=== PATIENT | female | born 1950 | race Caucasian/White ===

== ENCOUNTER 2016-11-06 12:36 | Observation (INO) | payer MEDICARE, MEDICAID ==
--- NOTE | 2016-11-06 13:32 | PDOC CONSULTATION ---
Consultation Consult Date: 11/06/16 Attending physician:: KEVIN GUZMAN Consult reason:: Epigastric, LUQ pain, possible GI bleed History of Present Illness Admission Date/PCP: 11/06/16 12:36 АННА SOFIA, History of Present Illness: HOLLEY BURROUGHS is a 65 year old female she has been admitted by Dr Stevens. patient states was working in her yard felt something "pop" in the LUQ patient states has been having pain since then states that she saw dark blood in her stools she denies any melena there is no early satiety patient denies any nausea or vomiting patient says no fever or chills says that she has had a colonoscopy done in the past does use tobacco denies any dysphagia or odynophagia Past Medical History Cardiac Medical History: Reports: Hyperlipidema Pulmonary Medical History: Reports: Chronic Obstructive Pulmonary Disease (COPD) Endocrine Medical History: Reports: Diabetes Mellitus Type 2, Hypothyroidism GI Medical History: Reports: Gastroesophageal Reflux Disease Musculoskeltal Medical History: Reports: Arthritis Past Surgical History Past Surgical History: Reports: None Social History Smoking Status: Current Every Day Smoker Frequency of Alcohol Use: Occasional Drugs: None Family History Parental Family History Reviewed: Yes Children Family History Reviewed: Unknown Sibling(s) Family History Reviewed.: Unknown Medication/Allergy Home Medications: Albuterol Sulfate [Proair HFA] 1 puff IH Q4PM 11/06/16 Calcium Carbonate/Vitamin D3 [Calcium 600-Vit D3 200 Tablet] 1 tab PO DAILY Cyclobenzaprine HCl [Flexeril 10 mg Tablet] 10 mg PO Q8HP PRN 11/06/16 Fluticasone Propionate [Flonase Nasal [place] 50 Mcg/[place] 16 gm] 1 spray NASL DAILY 11/06/16 Levothyroxine Sodium 100 mcg PO QAM 11/06/16 Metformin HCl 500 mg PO QPM 11/06/16 Simvastatin 20 mg PO QPM 11/06/16 Allergies/Adverse Reactions: aspirin Allergy (Unverified 11/06/16 13:17) Review of Systems Constitutional: ABSENT: fever(s), headache(s), night sweats Eyes: ABSENT: visual disturbances Ears: ABSENT: hearing changes Respiratory: ABSENT: dyspnea, hemoptysis Gastrointestinal: ABSENT: diarrhea, dysphagia, hematochezia, melena, nausea, vomiting Genitourinary: ABSENT: dysuria, hematuria Musculoskeletal: ABSENT: joint swelling Integumentary: ABSENT: lesions, pruritus Psychiatric: ABSENT: hallucinations Endocrine: ABSENT: polydipsia, polyphagia, polyuria Physical Exam Vital Signs: Intake & Output 11/05/16 11/06/16 11/07/16 06:59 06:59 06:59 Weight 56.416 kg General appearance: PRESENT: no acute distress, thin Head exam: PRESENT: atraumatic, normocephalic Eye exam: PRESENT: EOMI, PERRLA. ABSENT: nystagmus, periorbital swelling, scleral icterus Throat exam: ABSENT: tonsillar exudate Neck exam: ABSENT: meningismus, tenderness, thyromegaly Cardiovascular exam: PRESENT: RRR, +S1, +S2 GI/Abdominal exam: PRESENT: normal bowel sounds, soft. ABSENT: distended, guarding, Mcdonough's sign, rebound, rigid, tenderness Extremities exam: ABSENT: joint swelling Musculoskeletal exam: PRESENT: full ROM Neurological exam: PRESENT: alert, awake, oriented to person, oriented to time, oriented to situation, reflexes normal, CN II-XII grossly intact Psychiatric exam: PRESENT: appropriate affect Skin exam: PRESENT: normal color. ABSENT: mottled, pallor, petechiae, urticaria , vesicles Assessment & Plan - Diagnosis (1) Epigastric pain Plan: possible peptic ulcer disease Will need EGD Risks, benefits and alternatives of the procedure are explained to the patient in detail Further recommendations to follow her Hgb is stable previous colonoscopy done per patient will try to get records to determine findings and if needed to be repeated - Time Time Spent: 50 to 70 Minutes
[2016-11-06 14:28] LABS: MEAN CORPUSCULAR HEMOGLOBIN 29.9 pg (27.0-33.4); MEAN CORPUSCULAR HGB CONC 31.9 g/dL (32.0-36.0); MEAN CORPUSCULAR VOLUME 94 fl (80-97); RED BLOOD COUNT 5.03 10^6/uL (3.72-5.28); RED CELL DISTRIBUTION WIDTH 13.2 % (11.5-14.0); WHITE BLOOD COUNT 6.7 10^3/uL (4.0-10.5)
[2016-11-06 14:51] LABS: ALANINE AMINOTRANSFERASE 42 U/L (9-52); ALBUMIN 4.2 g/dL (3.5-5.0); ALKALINE PHOSPHATASE 133 U/L (38-126); ANION GAP 11 (5-19); ASPARTATE AMINO TRANSFERASE 25 U/L (14-36); BILIRUBIN,TOTAL 0.5 mg/dL (0.2-1.3); BLOOD UREA NITROGEN 12 mg/dL (7-20); CALCIUM 8.6 mg/dL (8.4-10.2); CARBON DIOXIDE 30 mmol/L (22-30); CHLORIDE 103 mmol/L (98-107); CREATININE RESULT 0.75 mg/dL (0.52-1.25); GLUCOSE 81 mg/dL (75-110); POTASSIUM 4.4 mmol/L (3.6-5.0); SODIUM 144.4 mmol/L (137-145); TOTAL PROTEIN 6.5 g/dL (6.3-8.2)
--- NOTE | 2016-11-06 19:21 | EKG REPORT ---
SEVERITY:- OTHERWISE NORMAL ECG - SINUS RHYTHM LEFT AXIS DEVIATION : Confirmed by: Irasema Kumar MD 06-Nov-2016 19:20:28
[2016-11-06] MEDS ORDERED: ALBUTEROL SULFATE HFA (90 MCG/PUFF) 8 GM MDI (1 MDI/ER DISP) IH SCH (20:15)
[2016-11-06] MEDS ORDERED: (PENDING PHARMACY ID) (Calcium Carbonate/Vitamin D3 [Calcium 600-Vit D3 200 Tablet] 1 TAB) PO SCH (20:15)
[2016-11-06] MEDS ORDERED: FLUTICASONE NASAL SPRAY 50 MCG/SPRY 120 SPRAY/16 GM NASL ONE (21:00)
[2016-11-07] MEDS: NORMAL SALINE 1000 ML 1,000 ML IV PRN ×2 (03:42→15:53)
[2016-11-07] MEDS ORDERED: LEVOTHYROXINE SODIUM 0.1 MG TABLET PO SCH (08:00)
[2016-11-07] MEDS ORDERED: DIPHENHYDRAMINE HCL 50 MG/ML VIAL ONE (09:26)
[2016-11-07] MEDS ORDERED: PROMETHAZINE HCL INJ 25 MG/1 ML VIAL ONE (09:26)
[2016-11-07] MEDS ORDERED: ONDANSETRON HCL INJ/PF 4 MG/2 ML SDV ONE (09:26)
[2016-11-07] MEDS ORDERED: MIDAZOLAM 2 MG/2 ML INJ ONE (09:26)
[2016-11-07] MEDS ORDERED: NALOXONE HCL INJ/PF 0.4 MG/1 ML SDV ONE (09:26)
[2016-11-07] MEDS ORDERED: FENTANYL CITRATE INJ/PF 100 MCG/2 ML AMPUL ONE (09:27)
[2016-11-07] MEDS ORDERED: GLUCAGON,HUMAN RECOMB 1 MG INJ ONE (09:27)
[2016-11-07] MEDS ORDERED: EPINEPHRINE INJ 1 MG/10 ML DISP.SYRIN ONE (09:27)
[2016-11-07] MEDS ORDERED: FLUMAZENIL INJ 0.5 MG/5 ML VIAL IV ONE (09:27)
[2016-11-07] MEDS: MIDAZOLAM 2 MG/2 ML INJ ONE ×2 (09:56→10:00)
[2016-11-07] MEDS ORDERED: CALCIUM CARBONATE 250 MG/VITAMIN D3 125 UNIT TABLET PO SCH (10:00)
[2016-11-07] MEDS ORDERED: FLUTICASONE NASAL SPRAY 50 MCG/SPRY 120 SPRAY/16 GM NASL SCH (10:00)
--- NOTE | 2016-11-07 10:14 | Operative Report ---
Operative Report DATE OF SURGERY: 11/07/16 Operative Report: The risks benefits and alternatives of the procedure explained to the patient in detail and informed consent is obtained that GIF Olympus video scope was inserted into the patient's mouth and hypopharynx the esophagus is identified intubated and insufflated the scope was then advanced through the esophagus stomach and duodenum retroflexion maneuver is done the esophagus stomach and first and second portions of the duodenum examined PREOPERATIVE DIAGNOSIS: Epigastric pain POSTOPERATIVE DIAGNOSIS: Gastritis no active bleeding OPERATION: EGD with biopsy SURGEON: KEVIN GUZMAN ANESTHESIA: Moderate Sedation - 4 mg Versed, 50 g of fentanyl. TISSUE REMOVED OR ALTERED: Gastric specimens obtained rule out Helicobacter pylori COMPLICATIONS: None. ESTIMATED BLOOD LOSS: none. INTRAOPERATIVE FINDINGS: As described above, patent esophagus. First and second portions of the duodenum are normal. No blood found in the stomach. Mild gastritis PROCEDURE: Patient tolerated the procedure well. No immediate postprocedure complications are noted. She sent back to her room in good condition. Can resume her diet. Advance as tolerated We'll await on biopsies Stable hemoglobin Should be able to be discharged later on today metastatic any other medical issues Follow-up as outpatient
[2016-11-07 18:29] VITALS: BP 120/53
--- NOTE | 2016-11-07 19:44 | PDOC H&P ---
History of Present Illness Admission Date/PCP: 11/06/16 12:36 SALVADORKELINLENARD FrancescaARNULFO, History of Present Illness: Patient 65-year-old female with history of chronic obstructive pulmonary disease , she came to the office because of passage of black tarry stool, there is no vomiting there is associated upper abdominal pain, she was admitted directly from the office into the hospital for observation and management of her symptoms ,Because of concern for upper GI bleed. Past Medical History Cardiac Medical History: Reports: Hyperlipidema Pulmonary Medical History: Reports: Chronic Obstructive Pulmonary Disease (COPD) Neurological Medical History: Denies: Seizures Endocrine Medical History: Reports: Diabetes Mellitus Type 2, Hypothyroidism GI Medical History: Reports: Gastroesophageal Reflux Disease Musculoskeltal Medical History: Reports: Arthritis Psychiatric Medical History: Denies: Depression Past Surgical History Past Surgical History: Reports: None Social History Smoking Status: Current Every Day Smoker Cigarettes Packs Per Day: 1 Number of Years Smokin Frequency of Alcohol Use: Occasional Hx Recreational Drug Use: No Drugs: None Hx Prescription Drug Abuse: No - Advance Directive Resuscitation Status: Full Code Family History Family History: None Parental Family History Reviewed: Yes Children Family History Reviewed: Yes Sibling(s) Family History Reviewed.: Yes Medication/Allergy Home Medications: Albuterol Sulfate [Proair HFA] 1 puff IH Q4PM 11/06/16 Calcium Carbonate/Vitamin D3 [Calcium 600-Vit D3 200 Tablet] 1 tab PO DAILY Cyclobenzaprine HCl [Flexeril 10 mg Tablet] 10 mg PO Q8HP PRN 11/06/16 Fluticasone Propionate [Flonase Nasal [place] 50 Mcg/[place] 16 gm] 1 spray NASL DAILY 11/06/16 Levothyroxine Sodium 100 mcg PO QAM 11/06/16 Metformin HCl 500 mg PO QPM 11/06/16 Simvastatin 20 mg PO QPM 11/06/16 Allergies/Adverse Reactions: aspirin Allergy (Verified 11/06/16 16:51) Review of Systems Cardiovascular: ABSENT: chest pain, dyspnea on exertion, edema, orthropnea, palpitations Respiratory: ABSENT: cough, hemoptysis Gastrointestinal: PRESENT: abdominal pain, other - Passage of black tarry stool Genitourinary: ABSENT: dysuria, hematuria Musculoskeletal: ABSENT: joint swelling Integumentary: ABSENT: rash, wounds Neurological: ABSENT: abnormal gait, abnormal speech, confusion, dizziness, focal weakness, syncope Psychiatric: ABSENT: anxiety, depression, homidical ideation, suicidal ideation Endocrine: ABSENT: cold intolerance, heat intolerance, menstrual abnormalities, polydipsia, polyuria Hematologic/Lymphatic: ABSENT: easy bleeding, easy bruising, lymphadenopathy Physical Exam Vital Signs: Temp Pulse Resp BP Pulse Ox 97.8 F 69 20 120/53 L 96 11/07/16 18:25 11/07/16 18:25 11/07/16 18:25 11/07/16 18:25 11/07/16 18:25 Intake & Output 11/06/16 11/07/16 11/08/16 06:59 06:59 06:59 Intake Total 1440 1920 Balance 1440 1920 Weight 56.7 kg General appearance: PRESENT: no acute distress Head exam: PRESENT: atraumatic, normocephalic Neck exam: PRESENT: full ROM Respiratory exam: PRESENT: clear to auscultation vega Cardiovascular exam: PRESENT: RRR Vascular exam: PRESENT: normal capillary refill GI/Abdominal exam: PRESENT: normal bowel sounds, soft Rectal exam: PRESENT: deferred Neurological exam: PRESENT: alert Psychiatric exam: PRESENT: appropriate affect, normal mood Skin exam: PRESENT: dry, intact, warm Results Laboratory Results: 11/06/16 14:15 11/06/16 14:15 11/07/16 13:30 Stool Occult Blood NEGATIVE Impressions: Chest X-Ray 11/06/16 00:00 IMPRESSION: COPD. No acute findings. Assessment & Plan - Diagnosis (1) Upper GI bleed Is this a current diagnosis for this admission?: YesPlan: Patient is admitted into the hospital because of upper GI bleed, the hemogram is normal, consultation will be requested from GI for upper endoscopy
--- NOTE | 2016-11-07 19:46 | PDOC DISCHARGE SUMMARY ---
General - Admit/Disc Date/PCP Admission Date/Primary Care Provider: 11/06/16 12:36 АННА SOFIA, Discharge Date: 11/07/16 - Discharge Diagnosis (1) Upper GI bleed Is this a current diagnosis for this admission?: Yes - Additional Information Resuscitation Status: Full Code Discharge Activity: Activity As Tolerated Home Medications: Albuterol Sulfate [Proair HFA] 1 puff IH Q4PM 11/06/16 Calcium Carbonate/Vitamin D3 [Calcium 600-Vit D3 200 Tablet] 1 tab PO DAILY Cyclobenzaprine HCl [Flexeril 10 mg Tablet] 10 mg PO Q8HP PRN 11/06/16 Fluticasone Propionate [Flonase Nasal [place] 50 Mcg/[place] 16 gm] 1 spray NASL DAILY 11/06/16 Levothyroxine Sodium 100 mcg PO QAM 11/06/16 Metformin HCl 500 mg PO QPM 11/06/16 Simvastatin 20 mg PO QPM 11/06/16 History of Present Illness History of Present Illness: Patient 65-year-old female with history of chronic obstructive pulmonary disease , she came to the office because of passage of black tarry stool, there is no vomiting there is associated upper abdominal pain, she was admitted directly from the office into the hospital for observation and management of her symptoms ,Because of concern for upper GI bleed. Hospital Course Hospital Course: Patient was admitted for observation of upper GI bleed, she was seen by Dr. Pope ceo na, she underwent EGD and it showed gastritis. There was no active bleeding seen on EGD. The hemogram is normal. Physical Exam Vital Signs: Temp Pulse Resp BP Pulse Ox 97.8 F 69 20 120/53 L 96 11/07/16 18:25 11/07/16 18:25 11/07/16 18:25 11/07/16 18:25 11/07/16 18:25 Intake & Output 11/06/16 11/07/16 11/08/16 06:59 06:59 06:59 Intake Total 1440 1920 Balance 1440 1920 Weight 56.7 kg General appearance: PRESENT: no acute distress, well-developed, well-nourished Head exam: PRESENT: atraumatic, normocephalic Eye exam: PRESENT: conjunctiva pink, EOMI, PERRLA Ear exam: PRESENT: normal external ear exam Mouth exam: PRESENT: moist, tongue midline Neck exam: PRESENT: full ROM Respiratory exam: PRESENT: clear to auscultation vega Vascular exam: PRESENT: normal capillary refill GI/Abdominal exam: PRESENT: normal bowel sounds, soft Rectal exam: PRESENT: deferred Neurological exam: PRESENT: alert, awake, oriented to person, oriented to place , oriented to time, oriented to situation, CN II-XII grossly intact. ABSENT: motor sensory deficit Psychiatric exam: PRESENT: appropriate affect, normal mood Skin exam: PRESENT: dry, intact, warm Results Laboratory Results: 11/06/16 14:15 11/06/16 14:15 11/07/16 13:30 Stool Occult Blood NEGATIVE Impressions: Chest X-Ray 11/06/16 00:00 IMPRESSION: COPD. No acute findings.
== END 2016-11-07 19:47 | disposition home or self-care (01) ==
LOC: INTOOBSV 12:36 → 5 12:36
PROVIDERS: ADMIT Internal Medicine; ATTEND Internal Medicine
PROC: 0DB78ZX Excision of Stomach, Pylorus, Via Natural or Artificial Opening Endoscopic, Diagnostic (ICD-10-PCS; principal; 2016-11-07 11:30)
DX: K29.70 Gastritis, unspecified, without bleeding (principal); J44.9 Chronic obstructive pulmonary disease, unspecified; E78.5 Hyperlipidemia, unspecified; E11.9 Type 2 diabetes mellitus without complications; E03.9 Hypothyroidism, unspecified; K21.9 Gastro-esophageal reflux disease without esophagitis; M19.90 Unspecified osteoarthritis, unspecified site; F17.210 Nicotine dependence, cigarettes, uncomplicated; Z79.84 Long term (current) use of oral hypoglycemic drugs
CPT/HCPCS: 43239; 36415; 85027; 82272; 80076; 80048; 88342 ×2; 88305 ×2; 71020; 93005; 93010; G0378; G0379; J2250; A9270 ×3; J3010; J1610; J7030; J0171; J1200; J2310; J2405; J2550; J3490

== ENCOUNTER 2016-11-11 17:26 | Observation (INO) | payer MEDICARE, MEDICAID ==
[2016-11-11] MEDS ORDERED: 1/2 NORMAL SALINE 1,000 ML IV PRN (18:17)
[2016-11-11 18:40] LABS: ABSOLUTE BASOPHILS # (AUTO) 0.1 10^3/uL (0.0-0.2); ABSOLUTE EOSINOPHILS # (AUTO) 0.2 10^3/uL (0.0-0.6); ABSOLUTE LYMPHOCYTES (AUTO) 2.1 10^3/uL (0.5-4.7); ABSOLUTE MONOCYTES (AUTO) 0.5 10^3/uL (0.1-1.4); ABSOLUTE NEUT (AUTO) 4.1 10^3/uL (1.7-8.2); BASOPHILS % (AUTO) 1.1 % (0-2); EOSINOPHILS % (AUTO) 2.5 % (0-6); HEMATOCRIT 47.3 % (36.0-47.0); HGB HCT DIFFERENCE 0.7; LYMPHOCYTES % (AUTO) 30.4 % (13-45); MEAN CORPUSCULAR HEMOGLOBIN 30.8 pg (27.0-33.4); MEAN CORPUSCULAR HGB CONC 33.8 g/dL (32.0-36.0); MEAN CORPUSCULAR VOLUME 91 fl (80-97); MONOCYTES % (AUTO) 7.2 % (3-13); RED BLOOD COUNT 5.19 10^6/uL (3.72-5.28); RED CELL DISTRIBUTION WIDTH 13.4 % (11.5-14.0); SEGMENTED NEUTROPHILS % (AUTO) 58.8 % (42-78); WHITE BLOOD COUNT 6.9 10^3/uL (4.0-10.5)
[2016-11-11 18:47] LABS: ALANINE AMINOTRANSFERASE 35 U/L (9-52); ALBUMIN 4.1 g/dL (3.5-5.0); ALKALINE PHOSPHATASE 130 U/L (38-126); ANION GAP 14 (5-19); ASPARTATE AMINO TRANSFERASE 26 U/L (14-36); BILIRUBIN,TOTAL 0.5 mg/dL (0.2-1.3); BLOOD UREA NITROGEN 15 mg/dL (7-20); CALCIUM 8.9 mg/dL (8.4-10.2); CARBON DIOXIDE 31 mmol/L (22-30); CHLORIDE 101 mmol/L (98-107); GLUCOSE 96 mg/dL (75-110); POTASSIUM 4.1 mmol/L (3.6-5.0); SODIUM 146.4 mmol/L (137-145); TOTAL PROTEIN 7.7 g/dL (6.3-8.2)
[2016-11-11] MEDS ORDERED: (PENDING PHARMACY ID) (Calcium Carbonate/Vitamin D3 [Calcium 600-Vit D3 200 Tablet] 1 TAB) PO SCH (22:15)
[2016-11-11] MEDS ORDERED: ALBUTEROL SULFATE HFA (90 MCG/PUFF) 8 GM MDI (1 MDI/ER DISP) IH ONE (23:00)
[2016-11-11] MEDS ORDERED: CALCIUM CARBONATE 250 MG/VITAMIN D3 125 UNIT TABLET PO ONE (23:00)
[2016-11-11] MEDS ORDERED: FLUTICASONE NASAL SPRAY 50 MCG/SPRY 120 SPRAY/16 GM NASL ONE (23:00)
[2016-11-11] MEDS ORDERED: FLUTICASONE NASAL SPRAY 50 MCG/SPRY 120 SPRAY/16 GM ONE (23:37)
[2016-11-11] MEDS ORDERED: ALBUTEROL SULFATE HFA (90 MCG/PUFF) 200 PUFF/8.5 GM MDI IH ONE (23:38)
[2016-11-12] MEDS: CALCIUM CARBONATE 250 MG/VITAMIN D3 125 UNIT TABLET PO SCH (10:08)
[2016-11-12] MEDS: LEVOTHYROXINE SODIUM 0.1 MG TABLET PO SCH (10:09)
[2016-11-12] MEDS: FLUTICASONE NASAL SPRAY 50 MCG/SPRY 120 SPRAY/16 GM NASL SCH (10:09)
--- NOTE | 2016-11-12 11:05 | PDOC CONSULTATION ---
Consultation Consult Date: 11/12/16 Attending physician:: KEVIN GUZMAN Consult reason:: Rectal bleeding. History of Present Illness Admission Date/PCP: 11/11/16 17:26 АННА SOFIA, History of Present Illness: HOLLEY BURROUGHS is a 65 year old female She was recently seen a few days ago she came in with what she described as having a popping sensation and had some LUQ pain. she states that she saw some bleeding she was admitted for possible GI bleeding however her HGB was stable she underwent EGD, this was negative she was subsequently discharged patient states continued to see blood in her stool but not associated with any chest pain or SOB again her Hgb is stable she is eating breakfast when I saw her patient's previous biopsies are negative she has had a colonoscopy in the past however, I am not able to find any results since it was done by Dr Hurley in his endoscopy center Dr Stevens is requesting a repeat colonoscopy to evaluate potential sources of rectal bleeding she denies any nausea and vomiting denies any dysphagia or odynophagia there is no early satiety Past Medical History Cardiac Medical History: Reports: Hyperlipidema Pulmonary Medical History: Reports: Chronic Obstructive Pulmonary Disease (COPD) Neurological Medical History: Denies: Seizures Endocrine Medical History: Reports: Diabetes Mellitus Type 2, Hypothyroidism GI Medical History: Reports: Gastroesophageal Reflux Disease Musculoskeltal Medical History: Reports: Arthritis Psychiatric Medical History: Denies: Depression Past Surgical History Past Surgical History: Denies: Hysterectomy Social History Smoking Status: Current Every Day Smoker Frequency of Alcohol Use: Occasional Hx Recreational Drug Use: No Drugs: None Hx Prescription Drug Abuse: No Family History Family History: None Parental Family History Reviewed: Yes Children Family History Reviewed: Unknown Sibling(s) Family History Reviewed.: Unknown Medication/Allergy Home Medications: Albuterol Sulfate [Proair HFA] 1 puff IH Q4PM 11/06/16 Calcium Carbonate/Vitamin D3 [Calcium 600-Vit D3 200 Tablet] 1 tab PO DAILY Cyclobenzaprine HCl [Flexeril 10 mg Tablet] 10 mg PO Q8HP PRN 11/06/16 Fluticasone Propionate [Flonase Nasal [place] 50 Mcg/[place] 16 gm] 1 spray NASL DAILY 11/06/16 Levothyroxine Sodium 100 mcg PO QAM 01/26/17 Metformin HCl 500 mg PO QPM 11/06/16 Simvastatin 20 mg PO QPM 11/06/16 Allergies/Adverse Reactions: aspirin Allergy (Verified 11/06/16 16:51) Review of Systems Constitutional: ABSENT: fever(s), headache(s), night sweats, weakness Eyes: ABSENT: visual disturbances Ears: ABSENT: hearing changes Cardiovascular: ABSENT: dyspnea on exertion, orthropnea, palpitations Respiratory: ABSENT: dyspnea, hemoptysis Gastrointestinal: PRESENT: hematochezia. ABSENT: bloating, coffee ground emesis , diarrhea, hematemesis Genitourinary: PRESENT: dysuria. ABSENT: hematuria Musculoskeletal: ABSENT: deformity, joint swelling Integumentary: ABSENT: lesions, pruritus Neurological: ABSENT: focal weakness, numbness, paresthesias, syncope, vertigo, weakness Endocrine: ABSENT: heat intolerance, polydipsia, polyphagia, polyuria Physical Exam Vital Signs: Temp Pulse Resp BP Pulse Ox 97.5 F 65 18 116/61 100 11/12/16 07:13 11/12/16 07:13 11/12/16 07:13 11/12/16 07:13 11/12/16 07:13 Intake & Output 11/11/16 11/12/16 11/13/16 06:59 06:59 06:59 Intake Total 900 Output Total 600 Balance 300 Weight 55.8 kg General appearance: PRESENT: no acute distress, cooperative, well-developed, well-nourished Head exam: PRESENT: atraumatic, normocephalic Eye exam: PRESENT: EOMI, PERRLA. ABSENT: conjunctival injection, nystagmus, periorbital swelling, scleral icterus Throat exam: ABSENT: tonsillar exudate Neck exam: ABSENT: meningismus, tenderness, thyromegaly Respiratory exam: PRESENT: clear to auscultation vega, symmetrical, unlabored. ABSENT: stridor, wheezes Cardiovascular exam: PRESENT: RRR, +S1, +S2. ABSENT: irregular rhythm GI/Abdominal exam: PRESENT: normal bowel sounds, soft. ABSENT: Mcdonough's sign, rebound, rigid, tenderness Extremities exam: ABSENT: joint swelling Musculoskeletal exam: PRESENT: full ROM Neurological exam: PRESENT: oriented to time, oriented to situation, reflexes normal, CN II-XII grossly intact Psychiatric exam: PRESENT: appropriate affect Focused psych exam: ABSENT: restlessness Skin exam: PRESENT: normal color. ABSENT: mottled, pallor, petechiae, urticaria , vesicles Results Laboratory Results: 11/11/16 18:20 11/11/16 18:20 11/11/16 11/11/16 18:20 18:20 WBC 6.9 RBC 5.19 Hgb 16.0 H Hct 47.3 H MCV 91 MCH 30.8 MCHC 33.8 RDW 13.4 Plt Count 187 Seg Neutrophils % 58.8 Lymphocytes % 30.4 Monocytes % 7.2 Eosinophils % 2.5 Basophils % 1.1 Absolute Neutrophils 4.1 Absolute Lymphocytes 2.1 Absolute Monocytes 0.5 Absolute Eosinophils 0.2 Absolute Basophils 0.1 Sodium 146.4 H Potassium 4.1 Chloride 101 Carbon Dioxide 31 H Anion Gap 14 BUN 15 Creatinine 0.80 Est GFR ( Amer) > 60 Est GFR (Non-Af Amer) > 60 Glucose 96 Calcium 8.9 Total Bilirubin 0.5 AST 26 ALT 35 Alkaline Phosphatase 130 H Total Protein 7.7 Albumin 4.1 Assessment & Plan - Diagnosis (1) Rectal bleeding Plan: she will need a colonoscopy ? possible source of bleeding Risks, benefits and alternatives are discussed with the patient in detail further recommendations to follow she is willing to proceed - Time Time Spent: 50 to 70 Minutes
[2016-11-12] MEDS ORDERED: PEG 3350/NA SULF,BICARB,CL/KCL 4000 ML PO PRN (11:15)
--- NOTE | 2016-11-12 15:23 | PDOC H&P ---
History of Present Illness Admission Date/PCP: 11/11/16 17:26 SALVADORPIOTR VALLECILLOHAILEY, History of Present Illness: Patient 65-year-old female with history of chronic obstructive pulmonary disease. She was admitted for observation on 11/06/2016 when she said she passed black tarry stool and upper GI bleed was suspected, on that admission. She was seen by GI. She underwent EGD, but that was no active bleeding found on the EGD,She was then discharged home. She came to the office still complaining of passing black stool. The plan,When she was discharged was for outpatient colonoscopy, but patient insisted that she needed to be admitted again for observation and and have the colonoscopy done, she is terrified because she says she lives by herself. She was admitted directly from the office into the hospital for evaluation.The hemogram was normal,There is no indication for blood transfusion Past Medical History Cardiac Medical History: Reports: Hyperlipidema Pulmonary Medical History: Reports: Chronic Obstructive Pulmonary Disease (COPD) Endocrine Medical History: Reports: Diabetes Mellitus Type 2, Hypothyroidism GI Medical History: Reports: Gastroesophageal Reflux Disease Musculoskeltal Medical History: Reports: Arthritis Social History Smoking Status: Current Every Day Smoker Frequency of Alcohol Use: Occasional Hx Recreational Drug Use: No Drugs: None Hx Prescription Drug Abuse: No Family History Family History: None Parental Family History Reviewed: Yes Children Family History Reviewed: Yes Sibling(s) Family History Reviewed.: Yes Medication/Allergy Home Medications: Albuterol Sulfate [Proair HFA Inhalation Aerosol 8.5 gm MDI] 2 puff PO Q4HP PRN 11/12/16 Calcium Carbonate/Vitamin D3 [Calcium 600-Vit D3 200 Tablet] 1 each PO DAILY 10/28 Clobetasol Propionate [Embeline Cream] 1 applic TOP BID 11/12/16 Cyanocobalamin (Vitamin B-12) [Vitamin B-12 Inj 1000 Mcg/1 ml Vial] 1,000 mcg SQ [id number] 11/12/16 Cyclobenzaprine HCl [Flexeril 10 mg Tablet] 10 mg PO TID 11/12/16 Doxepin HCl [Silenor] 6 mg PO QHS 11/12/16 Fluticasone Propionate [Flonase Nasal [place] 50 Mcg/[place] 16 gm] 1 spray NASL DAILY 11/12/16 Hydroxychloroquine Sulfate [Plaquenil 200 mg Tablet] 200 mg PO BID 11/12/16 Levothyroxine Sodium [Synthroid 0.1 mg Tablet] 0.1 mg PO QAM 11/12/16 Metformin HCl 500 ng PO DAILY 11/12/16 Simvastatin [Zocor 20 mg Tablet] 20 mg PO QPM 11/12/16 Umeclidinium Brm/Vilanterol Tr [Anoro Ellipta 62.5-25 Mcg INH] 1 puff IH DAILY 11/12/16 Allergies/Adverse Reactions: aspirin Allergy (Verified 11/06/16 16:51) Review of Systems Constitutional: ABSENT: chills, fever(s), headache(s), weight gain, weight loss Eyes: ABSENT: visual disturbances Ears: ABSENT: hearing changes Cardiovascular: ABSENT: chest pain, dyspnea on exertion, edema, orthropnea, palpitations Respiratory: ABSENT: cough, hemoptysis Gastrointestinal: PRESENT: melena Genitourinary: ABSENT: dysuria, hematuria Musculoskeletal: ABSENT: joint swelling Integumentary: ABSENT: rash, wounds Neurological: ABSENT: abnormal gait, abnormal speech, confusion, dizziness, focal weakness, syncope Psychiatric: ABSENT: anxiety, depression, homidical ideation, suicidal ideation Endocrine: ABSENT: cold intolerance, heat intolerance, menstrual abnormalities, polydipsia, polyuria Hematologic/Lymphatic: ABSENT: easy bleeding, easy bruising, lymphadenopathy Physical Exam Vital Signs: Temp Pulse Resp BP Pulse Ox 98.2 F 65 16 101/49 L 96 11/12/16 11:19 11/12/16 11:19 11/12/16 11:19 11/12/16 11:19 11/12/16 11:19 Intake & Output 11/11/16 11/12/16 11/13/16 06:59 06:59 06:59 Intake Total 900 Output Total 600 Balance 300 Weight 55.8 kg General appearance: PRESENT: no acute distress Head exam: PRESENT: atraumatic, normocephalic Eye exam: PRESENT: PERRLA Neck exam: PRESENT: full ROM Respiratory exam: PRESENT: clear to auscultation vega Cardiovascular exam: PRESENT: RRR, +S1, +S2 Vascular exam: PRESENT: normal capillary refill GI/Abdominal exam: PRESENT: normal bowel sounds, soft Rectal exam: PRESENT: deferred Neurological exam: PRESENT: alert, awake, oriented to person, oriented to place , oriented to time, oriented to situation, CN II-XII grossly intact Psychiatric exam: PRESENT: appropriate affect, normal mood Skin exam: PRESENT: dry, intact, warm Results Laboratory Results: 11/11/16 18:20 11/11/16 18:20 11/11/16 11/11/16 18:20 18:20 WBC 6.9 RBC 5.19 Hgb 16.0 H Hct 47.3 H MCV 91 MCH 30.8 MCHC 33.8 RDW 13.4 Plt Count 187 Seg Neutrophils % 58.8 Lymphocytes % 30.4 Monocytes % 7.2 Eosinophils % 2.5 Basophils % 1.1 Absolute Neutrophils 4.1 Absolute Lymphocytes 2.1 Absolute Monocytes 0.5 Absolute Eosinophils 0.2 Absolute Basophils 0.1 Sodium 146.4 H Potassium 4.1 Chloride 101 Carbon Dioxide 31 H Anion Gap 14 BUN 15 Creatinine 0.80 Est GFR ( Amer) > 60 Est GFR (Non-Af Amer) > 60 Glucose 96 Calcium 8.9 Total Bilirubin 0.5 AST 26 ALT 35 Alkaline Phosphatase 130 H Total Protein 7.7 Albumin 4.1 Assessment & Plan - Diagnosis (1) GI bleed Qualifiers: GI bleed type/associated pathology: unspecified gastrointestinal hemorrhage type Qualified Code(s): K92.2 - Gastrointestinal hemorrhage, unspecified Is this a current diagnosis for this admission?: YesPlan: Patient with passage of melena stool, the upper GI endoscopy did not show any active bleeding, the hemogram is normal, she is admitted for observation, consultation will be requested from GI for colonoscopy. (2) Chronic obstructive pulmonary disease Qualifiers: COPD type: unspecified COPD Qualified Code(s): J44.9 - Chronic obstructive pulmonary disease, unspecified Is this a current diagnosis for this admission?: Yes
[2016-11-12] MEDS ORDERED: ALBUTEROL SULFATE HFA (90 MCG/PUFF) 8 GM MDI (1 MDI/ER DISP) IH SCH ×2 (16:00→22:00)
[2016-11-12] MEDS ORDERED: ALBUTEROL SULFATE HFA (90 MCG/PUFF) 200 PUFF/8.5 GM MDI IH PRN (18:33)
[2016-11-13] MEDS: LEVOTHYROXINE SODIUM 0.1 MG TABLET PO SCH (09:16)
[2016-11-13] MEDS: CALCIUM CARBONATE 250 MG/VITAMIN D3 125 UNIT TABLET PO SCH (09:16)
[2016-11-13] MEDS: FLUTICASONE NASAL SPRAY 50 MCG/SPRY 120 SPRAY/16 GM NASL SCH (09:16)
[2016-11-13] MEDS ORDERED: NALOXONE HCL INJ/PF 0.4 MG/1 ML SDV ONE (12:16)
[2016-11-13] MEDS ORDERED: ONDANSETRON HCL INJ/PF 4 MG/2 ML SDV ONE (12:17)
[2016-11-13] MEDS ORDERED: PROMETHAZINE HCL INJ 25 MG/1 ML VIAL ONE (12:17)
[2016-11-13] MEDS ORDERED: DIPHENHYDRAMINE HCL 50 MG/ML VIAL ONE (12:17)
[2016-11-13] MEDS ORDERED: FENTANYL CITRATE INJ/PF 100 MCG/2 ML AMPUL ONE (12:17)
[2016-11-13] MEDS ORDERED: FLUMAZENIL INJ 0.5 MG/5 ML VIAL IV ONE (12:18)
[2016-11-13] MEDS ORDERED: GLUCAGON,HUMAN RECOMB 1 MG INJ ONE (12:18)
[2016-11-13] MEDS ORDERED: EPINEPHRINE INJ 1 MG/10 ML DISP.SYRIN ONE (12:18)
[2016-11-13] MEDS: MIDAZOLAM 2 MG/2 ML INJ ONE ×3 (13:24→13:35)
--- NOTE | 2016-11-13 13:48 | Operative Report ---
Operative Report DATE OF SURGERY: 11/13/16 Operative Report: The risks, benefits and alternatives of the procedure including risks of bleeding, perforation requiring surgery are explained to the patient detail and informed consent is obtained. Patient is placed in a left lateral decubital position. Timeout is called. Conscious sedation medications are provided. An Olympus videoscope was inserted into the patient's rectum. It is gradually advanced all the way to the cecum. The cecum as identified by the usual anatomical landmarks of the ileocecal valve as well as the appendiceal office. Photodocumentation was obtained. Prep is good. Scope was then sequentially pulled back creative rest segments of the colon including the ascending colon, hepatic flexure, transverse colon, splenic flexure descending colon and finally into the rectosigmoid colon. Retroflexion maneuvers performed. PREOPERATIVE DIAGNOSIS: Rectal bleeding POSTOPERATIVE DIAGNOSIS: Internal hemorrhoids. Mild right-sided inflammation noted biopsies. No active bleeding noted OPERATION: Colonoscopy with biopsy SURGEON: KEVIN GUZMAN ANESTHESIA: Moderate Sedation - 4 mg of Versed, 50 g of fentanyl. TISSUE REMOVED OR ALTERED: Biopsies obtained on the right side of the colon. COMPLICATIONS: None. ESTIMATED BLOOD LOSS: none. INTRAOPERATIVE FINDINGS: No masses, AVMs, diverticulosis noted. Patient likely has some bleeding due to Internal hemorrhoids PROCEDURE: Patient tolerated the procedure well. No immediate postprocedure complications are noted. Patient is sent back to the room in good condition. Resume diet. Resume previous activity level. Follow-up as needed Patient likely bled from internal hemorrhoids Can discharge home
--- NOTE | 2016-11-13 18:14 | PDOC DISCHARGE SUMMARY ---
General - Admit/Disc Date/PCP Admission Date/Primary Care Provider: 11/11/16 17:26 АННА SOFIA, Discharge Date: 11/13/16 - Discharge Diagnosis (1) GI bleed Is this a current diagnosis for this admission?: Yes (2) Chronic obstructive pulmonary disease Is this a current diagnosis for this admission?: Yes (4) Type 2 diabetes mellitus Is this a current diagnosis for this admission?: Yes - Additional Information Resuscitation Status: Full Code Discharge Diet: As Tolerated, Diabetic Discharge Activity: Activity As Tolerated Home Medications: Albuterol Sulfate [Proair HFA Inhalation Aerosol 8.5 gm MDI] 2 puff PO Q4HP PRN 11/12/16 Calcium Carbonate/Vitamin D3 [Calcium 600-Vit D3 200 Tablet] 1 each PO DAILY 10/28 Clobetasol Propionate [Embeline Cream] 1 applic TOP BID 11/12/16 Cyanocobalamin (Vitamin B-12) [Vitamin B-12 Inj 1000 Mcg/1 ml Vial] 1,000 mcg SQ [id number] 11/12/16 Cyclobenzaprine HCl [Flexeril 10 mg Tablet] 10 mg PO TID 11/12/16 Doxepin HCl [Silenor] 6 mg PO QHS 11/12/16 Fluticasone Propionate [Flonase Nasal [place] 50 Mcg/[place] 16 gm] 1 spray NASL DAILY 11/12/16 Hydroxychloroquine Sulfate [Plaquenil 200 mg Tablet] 200 mg PO BID 11/12/16 Levothyroxine Sodium [Synthroid 0.1 mg Tablet] 0.1 mg PO QAM 11/12/16 Metformin HCl 500 ng PO DAILY 11/12/16 Simvastatin [Zocor 20 mg Tablet] 20 mg PO QPM 11/12/16 Umeclidinium Brm/Vilanterol Tr [Anoro Ellipta 62.5-25 Mcg INH] 1 puff IH DAILY 11/12/16 History of Present Illness History of Present Illness: Patient 65-year-old female with history of chronic obstructive pulmonary disease. She was admitted for observation on 11/06/2016 when she said she passed black tarry stool and upper GI bleed was suspected, on that admission. She was seen by GI. She underwent EGD, but that was no active bleeding found on the EGD,She was then discharged home. She came to the office still complaining of passing black stool. The plan,When she was discharged was for outpatient colonoscopy, but patient insisted that she needed to be admitted again for observation and and have the colonoscopy done, she is terrified because she says she lives by herself. She was admitted directly from the office into the hospital for evaluation.The hemogram was normal,There is no indication for blood transfusion Hospital Course Hospital Course: Patient was admitted because of GI bleed, the hemogram was normal and she did not require blood transfusion. She was seen by GI, Dr. Pope and she underwent colonoscopy and it showed internal hemorrhoids but there is no active bleeding seen. She was admitted for observation and she be discharged home today thank you Physical Exam Vital Signs: Temp Pulse Resp BP Pulse Ox 98.2 F 71 22 H 102/58 L 95 11/13/16 11:36 11/13/16 14:05 11/13/16 14:05 11/13/16 14:05 11/13/16 14:05 Intake & Output 11/12/16 11/13/16 11/14/16 06:59 06:59 06:59 Intake Total 900 2618 450 Output Total 600 1500 Balance 300 1118 450 Weight 55.8 kg 56.9 kg General appearance: PRESENT: no acute distress, well-developed, well-nourished Head exam: PRESENT: atraumatic, normocephalic Eye exam: PRESENT: conjunctiva pink, EOMI, PERRLA Ear exam: PRESENT: normal external ear exam Mouth exam: PRESENT: moist, tongue midline Neck exam: PRESENT: full ROM Cardiovascular exam: PRESENT: RRR, +S1, +S2 Vascular exam: PRESENT: normal capillary refill GI/Abdominal exam: PRESENT: normal bowel sounds, soft Rectal exam: PRESENT: deferred Neurological exam: PRESENT: alert, awake, oriented to person, oriented to place , oriented to time, oriented to situation, CN II-XII grossly intact. ABSENT: motor sensory deficit Psychiatric exam: PRESENT: appropriate affect, normal mood Skin exam: PRESENT: dry, intact, warm Results Laboratory Results: 11/11/16 18:20 11/11/16 18:20
[2016-11-13 18:55] VITALS: BP 119/43
== END 2016-11-13 19:11 | disposition home or self-care (01) ==
LOC: 3W 17:26
PROVIDERS: ADMIT Internal Medicine; ATTEND Internal Medicine
PROC: 0DBH8ZX Excision of Cecum, Via Natural or Artificial Opening Endoscopic, Diagnostic (ICD-10-PCS; principal; 2016-11-13 13:30)
DX: K64.9 Unspecified hemorrhoids (principal); K92.2 Gastrointestinal hemorrhage, unspecified; J44.9 Chronic obstructive pulmonary disease, unspecified; E11.9 Type 2 diabetes mellitus without complications; Z79.84 Long term (current) use of oral hypoglycemic drugs; E78.5 Hyperlipidemia, unspecified; E03.9 Hypothyroidism, unspecified; K21.9 Gastro-esophageal reflux disease without esophagitis; M19.90 Unspecified osteoarthritis, unspecified site; F17.210 Nicotine dependence, cigarettes, uncomplicated
CPT/HCPCS: 45380; 36415; 85025; 80076; 80048; 88305 ×2; G0378 ×3; G0379; J2250; A9270 ×3; J3010; J3490 ×3; J0171; J1200; J1610; J2310; J2405; J2550

== ENCOUNTER 2017-06-18 09:33 | Day surgery (SDC) | payer MEDICARE, MEDICAID ==
[~2017-06-18 09:33] MED LIST: KETOROLAC TROMETHAMINE 0.45% 4 DROP/0.4 ML DROPERETTE OS PRN
[2017-06-18] MEDS: BESIFLOXACIN HCL 0.6% OPH SUSP 5 ML BOTTLE OS PRN ×4 (10:05→11:15)
[2017-06-18] MEDS: CYCLOPENTOLATE 0.2%/PHENYLEPHRINE 1% OPH SOLN 2 ML OS PRN ×3 (10:05→10:25)
[2017-06-18] MEDS: TROPICAMIDE 1% OPH SOLN 3 ML OS PRN ×3 (10:05→10:25)
[2017-06-18] MEDS: TETRACAINE HCL 0.5% OPH SOLN 2 ML OS PRN ×4 (10:06→10:44)
[2017-06-18] MEDS ORDERED: ALBUTEROL SULFATE 0.083% NEB 2.5 MG/3 ML AMPUL NEB ONE (10:13)
[2017-06-18] MEDS ORDERED: MIDAZOLAM 2 MG/2 ML INJ ONE (10:23)
[2017-06-18] MEDS ORDERED: FENTANYL CITRATE INJ/PF 250 MCG/5 ML AMPULE ONE (10:24)
[2017-06-18] MEDS ORDERED: FENTANYL CITRATE INJ/PF 100 MCG/2 ML AMPUL ONE (10:25)
[2017-06-18] MEDS: CHONDR SU A NA/HYALUR INTRAOC KIT (SURGICARE) ONE ×2 (11:00)
[2017-06-18] MEDS: LIDOCAINE 1% INJ-PF (10 MG/ML) 30 ML SDV ONE ×2 (11:00)
[2017-06-18] MEDS: PHENYLEPHRINE/KETOROLAC 1%-0.3% 4 ML VIAL ONE ×2 (11:00)
[2017-06-18] MEDS ORDERED: LIDOCAINE 2% INJ-PF (100 MG/5 ML) SYRINGE ONE (11:25)
--- NOTE | 2017-06-18 14:42 | [facility] OPERATIVE REPORT E ---
[facility] Operative Report NAME: HOLLEY BURROUGHS AGE: 66Y DATE OF SURGERY: 06/18/2017 ROOM: PREOPERATIVE DIAGNOSIS: CATARACT, LEFT EYE. POSTOPERATIVE DIAGNOSIS: CATARACT, LEFT EYE. OPERATION: Cataract extraction with intraocular lens implant of the left eye. SURGEON: IMAN SMITH M.D. ANESTHESIA: Topical. PROCEDURE: After obtaining appropriate consent, the patient's left eye was prepped and draped in sterile fashion as well as the surgeon in a sterile manner and cataract surgery was started. First a paracentesis blade was used to make a small side-port incision. Viscoelastic was used to inflate the anterior chamber. Next a 2.4 mm incision was made with the paracentesis blade. A continuous capsulorrhexis incision was made using a cystotome and Utrata forceps. Following this hydrodissection was carried out to make the lens fully loose and mobile and it was rotated 90 degrees. Following this, a mfyxog-rsh-tvlvjew technique was used to phacoemulsify the lens with a CDE of 12.94. The remaining cortex was removed with irrigation/aspiration. Provisc was instilled into the capsular bag to inflate the bag. A SN60WF, 24.5 diopter lens was placed. The remaining viscoelastic material was removed with irrigation/aspiration. Following this, a 10-0 nylon suture was used to close the incision and it was found to be watertight. Vigamox was instilled in the eye and a protective shield was placed over the eye. The patient returned to the postoperative recovery in stable condition. DICTATING PHYSICIAN: IMAN SMITH M.D. [id number] PHY#: [id number] ID: [id number] JOB#: [id number] ACCT: [id number] cc:IMAN SMITH M.D. >
--- NOTE | 2017-06-18 14:47 | DISCHARGE SUMMARY E ---
Discharge Summary NAME: HOLLEY BURROUGHS : 1950 AGE: 66Y ADMITTED: 06/18/2017 DISCHARGED: 06/18/2017 HISTORY: This is a 66-year-old female who underwent cataract extraction of her left eye. DIAGNOSIS: Cataract, left eye. HOSPITAL COURSE: She underwent surgery. She was having difficulty with glare at night making it difficult to drive. DISCHARGE INSTRUCTIONS: She is to resume her regular diet. No bending at her waist. No heavy lifting. She should use her Besivance, Ilevro, and Durezol at 3:00 p.m. and 8:00 p.m. and sleep with a rigid shield, and I will see her 1 day postoperative. DICTATING PHYSICIAN: IMAN SMITH M.D. [id number] PHY#: [id number] ID: [id number] JOB#: [id number] ACCT: [id number] cc:IMAN SMITH M.D. >
== END 2017-06-18 12:07 | disposition home or self-care (01) ==
LOC: SC 09:33
PROVIDERS: ATTEND Internal Medicine
PROC: 08RK3JZ Replacement of Left Lens with Synthetic Substitute, Percutaneous Approach (ICD-10-PCS; principal; 2017-06-18 11:00)
DX: H25.13 Age-related nuclear cataract, bilateral (principal); H02.052 Trichiasis without entropion right lower eyelid; H40.1431 Capsular glaucoma with pseudoexfoliation of lens, bilateral, mild stage; H04.123 Dry eye syndrome of bilateral lacrimal glands; E11.9 Type 2 diabetes mellitus without complications; I10 Essential (primary) hypertension; M19.90 Unspecified osteoarthritis, unspecified site; J44.9 Chronic obstructive pulmonary disease, unspecified; E78.00 Pure hypercholesterolemia, unspecified; M32.9 Systemic lupus erythematosus, unspecified; E89.0 Postprocedural hypothyroidism; Z79.899 Other long term (current) drug therapy; Z79.84 Long term (current) use of oral hypoglycemic drugs; Z87.891 Personal history of nicotine dependence
CPT/HCPCS: 66984; 82962; V2632; J2250; J3490 ×2; A9270 ×2; J3010; J2001; C9447; 142

== ENCOUNTER 2017-07-09 07:56 | Day surgery (SDC) | payer MEDICARE, MEDICAID ==
[~2017-07-09 07:56] MED LIST changes: +KETOROLAC TROMETHAMINE 0.45% 4 DROP/0.4 ML DROPERETTE OD PRN; -KETOROLAC TROMETHAMINE 0.45% 4 DROP/0.4 ML DROPERETTE OS PRN
[2017-07-09] MEDS ORDERED: EPINEPHRINE INJ/PF 1 MG/1 ML AMPULE ONE (08:37)
[2017-07-09] MEDS ORDERED: CHONDR SU A NA/HYALUR INTRAOC KIT (SURGICARE) ONE (08:37)
[2017-07-09] MEDS ORDERED: LIDOCAINE 1% INJ-PF (10 MG/ML) 30 ML SDV ONE (08:37)
[2017-07-09] MEDS: CYCLOPENTOLATE 0.2%/PHENYLEPHRINE 1% OPH SOLN 2 ML OD PRN ×3 (08:45→09:06)
[2017-07-09] MEDS: TETRACAINE HCL 0.5% OPH SOLN 2 ML OD PRN ×3 (08:45→09:20)
[2017-07-09] MEDS: TROPICAMIDE 1% OPH SOLN 3 ML OD PRN ×3 (08:46→09:06)
[2017-07-09] MEDS: BESIFLOXACIN HCL 0.6% OPH SUSP 5 ML BOTTLE OD PRN ×3 (08:46→09:44)
[2017-07-09] MEDS ORDERED: ALBUTEROL SULFATE 0.083% NEB 2.5 MG/3 ML AMPUL NEB ONE (09:05)
[2017-07-09] MEDS ORDERED: MIDAZOLAM 2 MG/2 ML INJ ONE (09:10)
[2017-07-09] MEDS ORDERED: FENTANYL CITRATE INJ/PF 100 MCG/2 ML AMPUL ONE (09:11)
[2017-07-09] MEDS ORDERED: KETOROLAC TROMETHAMINE 0.45% 4 DROP/0.4 ML DROPERETTE OD ONE (09:57)
[2017-07-09] MEDS ORDERED: ACETAMINOPHEN 325 MG TABLET PO ONE (10:11)
[2017-07-09] MEDS ORDERED: ACETAMINOPHEN 325 MG TABLET ONE (10:12)
--- NOTE | 2017-07-09 18:47 | [facility] OPERATIVE REPORT E ---
[facility] Operative Report NAME: HOLLEY BURROUGHS AGE: 66Y DATE OF SURGERY: 07/09/2017 ROOM: PREOPERATIVE DIAGNOSIS: Cataract, right eye. POSTOPERATIVE DIAGNOSIS: Cataract, right eye. OPERATION: Cataract extraction with intraocular lens implant of the right eye. SURGEON: IMAN SMITH M.D. ANESTHESIA: Topical. PROCEDURE: After obtaining appropriate consent, the patient's right eye was prepped and draped in sterile fashion as well as the surgeon in a sterile manner and cataract surgery was started. First a paracentesis blade was used to make a small side-port incision. Viscoelastic was used to inflate the anterior chamber. Next a 2.4 mm incision was made with the paracentesis blade. A continuous capsulorrhexis incision was made using a cystotome and Utrata forceps. Following this hydrodissection was carried out to make the lens fully loose and mobile and it was rotated 90 degrees. Following this, a umtkyx-vfj-mdicvho technique was used to phacoemulsify the lens with a CDE of 14.56. The remaining cortex was removed with irrigation/aspiration. Provisc was instilled into the capsular bag to inflate the bag. A SN60WF, 23.5 diopter lens was placed. The remaining viscoelastic material was removed with irrigation/aspiration. Following this, a 10-0 nylon suture was used to close the incision and it was found to be watertight. Vigamox was instilled in the eye and a protective shield was placed over the eye. The patient returned to the postoperative recovery in stable condition. DICTATING PHYSICIAN: IMAN SMITH M.D. [id number] PHY#: [id number] ID: [id number] JOB#: [id number] ACCT: [id number] cc:IMAN SMITH M.D. >
--- NOTE | 2017-07-09 18:52 | [facility] DISCHARGE SUMMARY E ---
[facility] Discharge Summary NAME: HOLLEY BURROUGHS AGE: 66Y ADMITTED: 07/09/2017 DISCHARGED: HISTORY OF PRESENT ILLNESS AND HOSPITAL COURSE: This is a 66-year-old female who underwent cataract extraction of the right eye. DIAGNOSIS: Cataract, right eye. HOSPITAL COURSE: She underwent surgery because she was having difficulty with her depth perception and imbalance between eyes and also difficulty reading small print. DISCHARGE INSTRUCTIONS: 1. She should be on a regular diet. 2. No bending at the waist and no heavy lifting. 3. She should use her Besivance, Ilevro, and Durezol at 3 p.m. and 8 p.m. and sleep with a rigid shield. 4. I will see her for her one-day postoperative tomorrow. DICTATING PHYSICIAN: IMAN SMITH M.D. [id number] PHY#: [id number] ID: [id number] JOB#: [id number] ACCT: [id number] cc:IMAN SMITH M.D. >
== END 2017-07-09 10:37 | disposition home or self-care (01) ==
LOC: SC 07:56
PROVIDERS: ATTEND Internal Medicine
PROC: 08RJ3JZ Replacement of Right Lens with Synthetic Substitute, Percutaneous Approach (ICD-10-PCS; principal; 2017-07-09 09:30)
DX: H25.11 Age-related nuclear cataract, right eye (principal); Z96.1 Presence of intraocular lens; J44.9 Chronic obstructive pulmonary disease, unspecified; E11.9 Type 2 diabetes mellitus without complications; E07.9 Disorder of thyroid, unspecified; F17.210 Nicotine dependence, cigarettes, uncomplicated; Z79.51 Long term (current) use of inhaled steroids; Z79.84 Long term (current) use of oral hypoglycemic drugs; Z79.899 Other long term (current) drug therapy; Z88.6 Allergy status to analgesic agent; Z99.81 Dependence on supplemental oxygen
CPT/HCPCS: 66984; 82962; V2632; A9270 ×3; J2250; J3490 ×2; J0171; J3010; 142

== ENCOUNTER → 2018-05-07 | Outpatient (CLI) | payer MEDICARE, MEDICAID ==
--- NOTE | 2018-05-07 10:49 | RADIOLOGY REPORT (SQ) ---
EXAM DESCRIPTION: CT LUNG CANCER SCREENING COMPLETED DATE/TIME: 05/07/2018 10:23 am REASON FOR STUDY: ENCNTR SCREEN FOR MALIGNANT NEOPLASM OF RESPIRATORY ORGANS Z12.2 ENCNTR SCREEN FO R MALIGNANT NEOPLASM OF RESPIRATORY OR F17.219 NICOTINE DEPENDENCE, CIGARETTES, W UNSP DISORDERS J44 .9 CHRONIC OBSTRUCTIVE PULMONARY DISEASE, UNSPECIFIED Has the patient had a Chest CT scan within the past year? Was the patient offered tobacco cessation counseling? Was the patient engaged in shared decision making for this test? Does the patient have signs or symptoms of Lung Cancer? Is the patient a smoker? How many packs per year? How many years since quitting smoking? Patients age: COMPARISON: 2015. TECHNIQUE: Low Dose CT scan performed of the chest without intravenous contrast for purposes of scre ening for lung cancer. Images reviewed with lung, soft tissue and bone windows. Reconstructed coron al and sagittal MPR images reviewed. All images stored on PACS. All CT scanners at this facility use dose modulation, iterative reconstruction, and/or weight based d osing when appropriate to reduce radiation dose to as low as reasonably achievable (ALARA). [facility]: Dose Right [facility]: CareDose [facility]: Dose Right [facility]: Teradose 4D [facility]: [employer] RADIATION DOSE: CT Rad equipment meets quality standard of care and radiation dose reduction techniq ues were employed. CTDIvol: 2.0 mGy. DLP: 78 mGy-cm. mGy. . LIMITATIONS: None FINDINGS: LUNGS AND PLEURA: No masses or nodules. No pleural effusions or calcifications. No pne umothorax. Areas of scarring and bullous disease. HILAR AND MEDIASTINAL STRUCTURES: No identified masses. No abnormal nodes. HEART AND VASCULAR STRUCTURES: No aortic aneurysm. No pericardial effusion. No cardiac devices. CORONARY ARTERY CALCIFICATIONS: No significant calcifications. UPPER ABDOMEN, THYROID, BONES, OTHER SOFT TISSUES: No significant findings. IMPRESSION: NO SIGNIFICANT FINDING IN THE LUNGS ON NON-CONTRASTED CHEST CT. NO OTHER CLINICALLY SIGNIFICANT/POTENTIALLY CLINICALLY SIGNIFICANT FINDINGS LUNGRADS: LUNGRADS: 1 NEGATIVE. NO NODULES, OR DEFINITELY BENIGN NODULES MODIFIER: NONE RECOMMENDATION: Continue annual screening with LDCT in 12 months. COMMENT: CRITERIA: No lung nodules. Nodules with specific calcifications: Complete, central, popcorn, concentric rings and fat containin g nodules. TECHNICAL DOCUMENTATION: JOB ID: [id number] Quality ID # [id number]: Final reports with documentation of one or more dose reduction techniques (e.g., Au tomated exposure control, adjustment of the mA and/or kV according to patient size, use of iterative reconstruction technique) 2010 [facility] Reading location - IP/workstation name: [email or web address]
== END ==
LOC: RAD 09:45
PROVIDERS: ATTEND Internal Medicine
DX: Z12.2 Encounter for screening for malignant neoplasm of respiratory organs (principal); F17.219 Nicotine dependence, cigarettes, with unspecified nicotine-induced disorders; J43.9 Emphysema, unspecified
CPT/HCPCS: G0297

== ENCOUNTER 2020-06-27 15:48 | Emergency (ER) | payer MEDICARE, MEDICAID ==
[2020-06-27] MEDS ORDERED: IPRATROPIUM/ALBUTEROL 0.5-2.5 MG/3 ML AMPUL NEB ONE (16:41)
[2020-06-27] MEDS ORDERED: METHYLPREDNISOLONE INJ 125 MG/2 ML SDV IV ONE (16:42)
[2020-06-27 16:51] LABS: ABSOLUTE EOSINOPHILS # (AUTO) 0.1 10^3/uL (0.0-0.6); ABSOLUTE LYMPHOCYTES (AUTO) 0.8 10^3/uL (0.5-4.7); ABSOLUTE MONOCYTES (AUTO) 0.5 10^3/uL (0.1-1.4); ABSOLUTE NEUT (AUTO) 5.2 10^3/uL (1.7-8.2); BASOPHILS % (AUTO) 0.5 % (0-2); EOSINOPHILS % (AUTO) 1.2 % (0-6); HEMATOCRIT 52.6 % (36.0-47.0); HEMOGLOBIN 17.7 g/dL (12.0-15.5); LYMPHOCYTES % (AUTO) 12.1 % (13-45); MEAN CORPUSCULAR HEMOGLOBIN 31.2 pg (27.0-33.4); MEAN CORPUSCULAR HGB CONC 33.7 g/dL (32.0-36.0); MEAN CORPUSCULAR VOLUME 93 fl (80-97); PLATELET COUNT 185 10^3/uL (150-450); RED BLOOD COUNT 5.67 10^6/uL (3.72-5.28); RED CELL DISTRIBUTION WIDTH 13.5 % (11.5-14.0); SEGMENTED NEUTROPHILS % (AUTO) 79.2 % (42-78); TOTAL CELLS COUNTED % (AUTO) 100 %; WHITE BLOOD COUNT 6.6 10^3/uL (4.0-10.5)
--- NOTE | 2020-06-27 16:55 | RADIOLOGY REPORT (SQ) ---
EXAM DESCRIPTION: CHEST SINGLE VIEW IMAGES COMPLETED DATE/TIME: 06/27/2020 4:44 pm REASON FOR STUDY: SOB COMPARISON: 11/06/2016 EXAM PARAMETERS: NUMBER OF VIEWS: One view. TECHNIQUE: Single frontal radiographic view of the chest acquired. RADIATION DOSE: NA LIMITATIONS: None. FINDINGS: LUNGS AND PLEURA: Lung steven are hyperexpanded. No consolidation or effusions. MEDIASTINUM AND HILAR STRUCTURES: No masses. Contour normal. HEART AND VASCULAR STRUCTURES: Heart normal in size. Normal vasculature. BONES: No acute findings. HARDWARE: None in the chest. OTHER: No other significant finding. IMPRESSION: COPD. No acute findings. TECHNICAL DOCUMENTATION: JOB ID: [id number] 2010 [employer]- All Rights Reserved Reading location - IP/workstation name: [email or web address]
[2020-06-27 17:07] LABS: ALBUMIN 4.2 g/dL (3.5-5.0); ALKALINE PHOSPHATASE 106 U/L (38-126); ANION GAP 8 (5-19); ASPARTATE AMINO TRANSFERASE 31 U/L (14-36); BILIRUBIN,DIRECT 0.3 mg/dL (0.0-0.4); BILIRUBIN,TOTAL 0.6 mg/dL (0.2-1.3); BLOOD UREA NITROGEN 13 mg/dL (7-20); CALCIUM 7.4 mg/dL (8.4-10.2); CARBON DIOXIDE 36 mmol/L (22-30); CHLORIDE 96 mmol/L (98-107); GLUCOSE 136 mg/dL (75-110); POTASSIUM 4.1 mmol/L (3.6-5.0)
[2020-06-27 17:18] LABS: CREATINE KINASE MB 6.43 ng/mL (<4.55); NT PRO BNP 265 pg/mL (<125)
[2020-06-27 17:20] LABS: TROPONIN I < 0.012 ng/mL
[2020-06-27] MEDS ORDERED: ALBUTEROL SULFATE 0.083% NEB 2.5 MG/3 ML AMPUL NEB ONE (17:40)
--- NOTE | 2020-06-27 17:40 | ER Document Report ---
Entered by BERT WALDROP SCRIBE 06/27/20 1434 Acting as scribe for:CALVIN HUMPHREY MD ED Respiratory Problem - General Chief Complaint: Shortness Of Breath Stated Complaint: SHORTNESS OF BREATH Time Seen by Provider: 06/27/20 16:34 Primary Care Provider: АННА SOFIA MD [Primary Care Provider] - Follow up as needed Mode of Arrival: Wheelchair Information source: Patient Notes: This 69 year old female patient with a history of asthma and COPD (on 2L O2 NC at home) presents to the ED today with complaints of worsening shortness of breath that started prior to arrival. She reports an associated productive cough with clear sputum. Dr. Sofia is her PCP. TRAVEL OUTSIDE OF THE [place] IN LAST 30 DAYS: No - Related Data Allergies/Adverse Reactions: aspirin Allergy (Intermediate, Verified 07/09/17 08:35) MAKES HEART FLUTTER Past Medical History - General Information source: Patient, [facility] Records - Social History Smoking Status: Current Every Day Smoker Smoking Education Provided: No Family History: Reviewed & Not Pertinent Patient has suicidal ideation: No Patient has homicidal ideation: No - Past Medical History Cardiac Medical History: Reports: Hx Hypercholesterolemia Pulmonary Medical History: Reports: Hx Asthma, Hx COPD - O2 dependent Endocrine Medical History: Reports: Hx Diabetes Mellitus Type 2, Hx Hypothyroidism GI Medical History: Reports: Hx Gastroesophageal Reflux Disease Musculoskeletal Medical History: Reports Hx Arthritis - Osteoarthritis Skin Medical History: Reports Other - Hx Discoid Lupus Erythematosus Psychiatric Medical History: Reports: Hx Depression Past Surgical History: Reports: Hx Cholecystectomy, Hx Gynecologic Surgery - Conization biopsy, Hx Thyroid Surgery - Thyroidectomy, Hx Tonsillectomy, Hx Tubal Ligation Review of Systems - Review of Systems Constitutional: No symptoms reported EENT: No symptoms reported Cardiovascular: No symptoms reported Respiratory: See HPI, Cough, Short of breath, Sputum Gastrointestinal: No symptoms reported Genitourinary: No symptoms reported Female Genitourinary: No symptoms reported Musculoskeletal: No symptoms reported Skin: No symptoms reported Hematologic/Lymphatic: No symptoms reported Neurological/Psychological: No symptoms reported -: Yes All other systems reviewed and negative Physical Exam - Vital signs Vitals: Temp Pulse Resp BP Pulse Ox 97.9 F 95 24 H 148/48 H 92 06/27/20 15:49 06/27/20 15:49 06/27/20 15:49 06/27/20 15:49 06/27/20 15:49 - General General appearance: Other - Appears cachetic, has a stong urine odor, speaks in 2-3 word sentences In distress: None - HEENT Head: Normocephalic, Atraumatic Eyes: Normal Pupils: PERRL - Respiratory Respiratory status: Retractions, Tachypnea, Other - 100% on 2L O2 via NC Chest status: Prolonged expirations Breath sounds: Rhonchi, Wheezing - Distant Chest palpation: Normal - Cardiovascular Rhythm: Regular Heart sounds: Normal auscultation Murmur: No Friction rub: No Gallop: None auscultated - Abdominal Inspection: Normal Distension: No distension Bowel sounds: Normal Tenderness: Nontender - Abdomen soft Organomegaly: No organomegaly - Back Back: Normal, Nontender - Extremities General upper extremity: Normal inspection General lower extremity: Normal inspection. No: Edema - Neurological Neuro grossly intact: Yes - Psychological Associated symptoms: Normal affect, Normal mood - Skin Skin Temperature: Warm Skin Moisture: Dry Skin Color: Normal Course - Re-evaluation Re-evalutation: 06/27/20 18:41 The patient was evaluated during the global COVID-19 pandemic and that diagnosis was suspected/considered upon their initial presentation. Their evaluation, treatment and testing was consistent with current guidelines for patients who present with complaints or symptoms that may be related to COVID-19. When I went to review the findings with the patient, she began telling me that her air conditioner is not working at home. I looked up the weather forecast for the next week and found that the temperatures are going to be in the mid 70s to upper 60s for the next 8 days. In response to that, she stated her doctor told her that her lungs do not work at all. I advised her that she would not be talking to me if her lungs did not work at all. She next complained that she did not get any IV fluids and she felt she needed fluids for dehydration. When I asked her why she did not just drink more fluids and water she said she does not like to drink water. She persisted on wanting me to do some with about her lungs, I told her that COPD could not be fixed and her continued smoking only made it get worse faster. The patient's chest x-ray shows COPD with flattened diaphragms without infiltrate. EKG does not show acute changes. CBC, Chem-12, and cardiac enzymes are unremarkable. Her BUN and creatinine are not elevated. Her pulse ox on 2 L oxygen nasal cannula is 99% she is normally on 2 L oxygen at home all the time. She has not been able to produce any sputum. 06/27/20 19:43 I went back to speak with the patient after she got her IV fluids. She stated with when she went to the bathroom that she got short of breath trying to walk back to the bed. At this time on 2 L nasal cannula her oxygen saturation is on 100%. Her heart rate is 86. She also mentioned that she noticed a red rash developing on the anterior legs bilaterally. There is some erythema to the skin on the front of each leg starting just above the knee and extending down to just below the knee. I do not know if it was present previously. The skin in that area is quite dry and feels thickened. I do not know if this is related to her discoid lupus, but the prednisone taper dose she will be starting should help make it better. - Vital Signs Vital signs: Temp Pulse Resp BP Pulse Ox 97.9 F 95 22 H 138/63 H 100 06/27/20 15:49 06/27/20 15:49 06/27/20 19:00 06/27/20 19:00 06/27/20 19:01 - Laboratory Result Diagrams: 06/27/20 16:20 06/27/20 16:20 Laboratory results interpreted by me: 06/27/20 06/27/20 06/27/20 16:20 16:20 16:20 RBC 5.67 H Hgb 17.7 H Hct 52.6 H Lymph % (Auto) 12.1 L Seg Neutrophils % 79.2 H Chloride 96 L Carbon Dioxide 36 H Glucose 136 H Calcium 7.4 L CK-MB (CK-2) 6.43 H NT-Pro-B Natriuret Pep 265 H - Diagnostic Test Radiology reviewed: Image reviewed, Reports reviewed - Chest x-ray shows COPD without acute abnormalities. - EKG Interpretation by Me EKG shows normal: Sinus rhythm, [place], QRS Complexes, ST-T Waves. abnormal: Intervals - Borderline prolonged QT interval Rate: Normal - 87 Rhythm: NSR [place]/QRS: Left axis deviation When compared to previous EKG there are: No significant change Discharge - Discharge Clinical Impression: COPD exacerbation Condition: Stable Disposition: HOME, SELF-CARE Additional Instructions: You are experiencing a COPD exacerbation. Your chest x-ray does not show pneumonia, and your lab work does not suggest lung infection at this time. Your oxygen levels on 2 L nasal cannula are in a normal range. At home you should continue your regular medications. Add the doxycycline and prednisone as prescribed today. Increase your fluid intake at home. Try to reduce or quit smoking. Follow-up with Dr. Sofia if not improving. RETURN TO THE EMERGENCY ROOM IF ANY NEW OR WORSENING SYMPTOMS. Prescriptions: Prednisone [Deltasone 10 mg Tablet] 10 mg PO ASDIR PRN #21 tablet PRN Reason: Doxycycline Hyclate 100 mg PO BID #14 tablet.dr Referrals: АННА SOFIA MD [Primary Care Provider] - Follow up as needed I personally performed the services described in the documentation, reviewed and edited the documentation which was dictated to the scribe in my presence, and it accurately records my words and actions.
[2020-06-27] MEDS ORDERED: NORMAL SALINE 1000 ML 500 ML IV ONE (18:41)
[2020-06-27] MEDS ORDERED: PREDNISONE 20 MG TABLET PO ONE (18:48)
--- NOTE | 2020-06-27 19:09 | EKG REPORT ---
SEVERITY:- BORDERLINE ECG - SINUS RHYTHM LEFT AXIS DEVIATION BORDERLINE PROLONGED QT INTERVAL : Confirmed by: Travis Herrera 27-Jun-2020 19:08:28
[2020-06-27 20:32] VITALS: BP 121/73
== END 2020-06-27 20:32 | disposition home or self-care (01) ==
LOC: ER 15:48
DX: J44.1 Chronic obstructive pulmonary disease with (acute) exacerbation (principal); Z99.81 Dependence on supplemental oxygen; R06.02 Shortness of breath; R05 Cough; L93.0 Discoid lupus erythematosus; F17.200 Nicotine dependence, unspecified, uncomplicated; E11.9 Type 2 diabetes mellitus without complications; Z88.8 Allergy status to other drugs, medicaments and biological substances; Z20.828 Contact with and (suspected) exposure to other viral communicable diseases
CPT/HCPCS: 93005; 94640 ×2; 99285; 96361; 96374; 36415; 87040; 82553; 83735; 85025; 80053; 84484; 83880; 71045; 93010; J2930; A9270 ×2; J7030; J7512; J7613

== ENCOUNTER 2020-07-08 17:47 | Emergency (ER) | payer MEDICARE, MEDICAID ==
--- NOTE | 2020-07-08 18:34 | ER Document Report ---
ED Medical Screen (RME) - General Chief Complaint: Shortness Of Breath Stated Complaint: SHORTNESS OF BREATH Time Seen by Provider: 07/08/20 18:25 Primary Care Provider: АННА SOFIA MD [Primary Care Provider] - Follow up as needed TRAVEL OUTSIDE OF THE [place] IN LAST 30 DAYS: No - HPI Notes: 07/08/20 18:36 69-year-old female with history of COPD on 2 L continuous oxygen, hypertension, hyperlipidemia, tobacco misuse disorder to the emergency department with family with complaints of progressively worsening shortness of breath in the past day. She states that she has been feeling more short of breath today. She does not know what set her off. She states she was here last week with a COPD exasperation. She states that she uses oxygen 2 L at a time at home. She does not have her oxygen on here in the emergency department. She admits that she has been smoking. She states that she has not seen her primary care physician in follow-up. She states that she is not had chest pain but does endorse chest pressure. Denies any dizziness, nausea, vomiting, diaphoresis, leg swelling, fever, cough, possible sick contacts. I performed a brief medical screening paris floyd on the patient determined that the patient needs further evaluation and management by main side provider. I have placed initial orders to help expedite care. - Related Data Allergies/Adverse Reactions: aspirin Allergy (Intermediate, Verified 07/09/17 08:35) MAKES HEART FLUTTER Past Medical History - Past Medical History Cardiac Medical History: Reports: Hx Hypercholesterolemia, Hx Hypertension Denies: Hx Heart Attack Pulmonary Medical History: Reports: Hx Asthma, Hx COPD - O2 dependent Neurological Medical History: Denies: Hx Cerebrovascular Accident, Hx Seizures Endocrine Medical History: Reports: Hx Diabetes Mellitus Type 2, Hx Hypothyroidism GI Medical History: Reports: Hx Gastroesophageal Reflux Disease. Denies: Hx Hepatitis, Hx Hiatal Hernia, Hx Ulcer Musculoskeltal Medical History: Reports Hx Arthritis - Osteoarthritis Psychiatric Medical History: Reports: Hx Depression Infectious Medical History: Denies: Hx Hepatitis Past Surgical History: Reports: Hx Cholecystectomy, Hx Gynecologic Surgery - Conization biopsy, Hx Thyroid Surgery - Thyroidectomy, Hx Tonsillectomy, Hx Tubal Ligation. Denies: Hx Hysterectomy, Hx Mastectomy, Hx Open Heart Surgery, Hx Pacemaker Physical Exam - Vital signs Vitals: Temp Pulse Resp BP Pulse Ox 98.0 F 93 22 H 142/65 H 92 07/08/20 17:53 07/08/20 17:53 07/08/20 17:53 07/08/20 17:53 07/08/20 17:53 Course - Vital Signs Vital signs: Temp Pulse Resp BP Pulse Ox 98.0 F 93 22 H 142/65 H 92 07/08/20 17:53 07/08/20 17:53 07/08/20 17:53 07/08/20 17:53 07/08/20 17:53 Doctor's Discharge - Discharge Referrals: АННА SOFIA MD [Primary Care Provider] - Follow up as needed
[2020-07-08] MEDS ORDERED: PREDNISONE 20 MG TABLET PO ONE (18:35)
[2020-07-08] MEDS ORDERED: IPRATROPIUM/ALBUTEROL 0.5-2.5 MG/3 ML AMPUL NEB ONE (18:35)
[2020-07-08 19:15] LABS: ABSOLUTE EOSINOPHILS # (AUTO) 0.1 10^3/uL (0.0-0.6); ABSOLUTE LYMPHOCYTES (AUTO) 1.1 10^3/uL (0.5-4.7); ABSOLUTE MONOCYTES (AUTO) 0.7 10^3/uL (0.1-1.4); ABSOLUTE NEUT (AUTO) 6.7 10^3/uL (1.7-8.2); BASOPHILS % (AUTO) 0.3 % (0-2); HEMATOCRIT 50.5 % (36.0-47.0); HEMOGLOBIN 16.9 g/dL (12.0-15.5); LYMPHOCYTES % (AUTO) 13.3 % (13-45); MEAN CORPUSCULAR HEMOGLOBIN 31.2 pg (27.0-33.4); MEAN CORPUSCULAR HGB CONC 33.5 g/dL (32.0-36.0); MEAN CORPUSCULAR VOLUME 93 fl (80-97); MONOCYTES % (AUTO) 7.9 % (3-13); PLATELET COUNT 191 10^3/uL (150-450); RED BLOOD COUNT 5.41 10^6/uL (3.72-5.28); RED CELL DISTRIBUTION WIDTH 13.9 % (11.5-14.0); SEGMENTED NEUTROPHILS % (AUTO) 77.5 % (42-78); TOTAL CELLS COUNTED % (AUTO) 100 %; WHITE BLOOD COUNT 8.6 10^3/uL (4.0-10.5)
[2020-07-08 19:37] LABS: ALBUMIN 3.9 g/dL (3.5-5.0); ALKALINE PHOSPHATASE 96 U/L (38-126); ANION GAP 8 (5-19); ASPARTATE AMINO TRANSFERASE 26 U/L (14-36); BILIRUBIN,DIRECT 0.3 mg/dL (0.0-0.4); BILIRUBIN,TOTAL 0.6 mg/dL (0.2-1.3); BLOOD UREA NITROGEN 17 mg/dL (7-20); CARBON DIOXIDE 35 mmol/L (22-30); CHLORIDE 102 mmol/L (98-107); GLUCOSE 137 mg/dL (75-110); POTASSIUM 4.6 mmol/L (3.6-5.0); TOTAL PROTEIN 6.5 g/dL (6.3-8.2)
[2020-07-08 19:49] LABS: CALCIUM 6.3 mg/dL (8.4-10.2)
--- NOTE | 2020-07-08 20:15 | RADIOLOGY REPORT (SQ) ---
EXAM DESCRIPTION: XR CHEST 1 VIEW COMPLETED DATE/TME: 07/08/2020 18:34 CLINICAL HISTORY: 69 years, Female, SOB, chest pressure COMPARISON: X-ray chest 06/27/2020 NUMBER OF VIEWS: TECHNIQUE: LIMITATIONS: None. FINDINGS: There is emphysema. No evidence of pulmonary infiltrate or pleural effusion. The heart and mediastinum are unremarkable. Pulmonary vascularity appears normal. There is no significant change, as compared with the prior x-ray(s). IMPRESSION: Emphysema. copyright 2010 [employer]- All Rights Reserved
[2020-07-08] MEDS ORDERED: NORMAL SALINE 500 ML IV ONE (20:57)
--- NOTE | 2020-07-08 21:07 | ER Document Report ---
ED General - General Chief Complaint: Shortness Of Breath Stated Complaint: SHORTNESS OF BREATH Time Seen by Provider: 07/08/20 18:25 Primary Care Provider: АННА SOFIA MD [Primary Care Provider] - Follow up tomorrow TRAVEL OUTSIDE OF THE [place] IN LAST 30 DAYS: No - HPI Context: This is a 69-year-old female with a history of COPD presenting to the emergency department complaining of shortness of breath. Patient states she has a home oxygen concentrator that she has set at 2 L. Patient states that she still smokes. Patient states that she will stay on oxygen about 4 to 5 hours at a time and then take off the oxygen and smoke cigarette. Patient will then get back on the oxygen for another 4 to 5 hours. Patient was seen here 11 days ago with similar symptoms and complaint of shortness of breath for which she was put on prednisone and antibiotics. Patient states she has been taking medication as prescribed as well as using her Ewelina daily and using her MDI. Patient states that her inhalers not been helping her is not much. Patient states that she has had worsening shortness of breath over the course of the day today. Patient denies history of COVID infection, known exposure to COVID of positive persons or persons under investigation for COVID. Patient states she has self isolated for the past 5 months. Other than coming to the emergency department and being seen by her doctor. Patient states that she has a dry cough. Patient also complains of urinary frequency and voiding small amounts of urine for the past couple of days. Patient denies pain in her chest or anywhere else. Patient states that her shortness of breath is a 4 out of 5 and describes it as a tightness when she tries to take a breath. Smoking and exertion are exacerbatin g factors. Patient has not had any alleviating factors prior to the breathing treatment and interventions that were performed by EMS and here in the emergency department. Patient denies fever, chills, chest pain, abdominal pain, rash. Patient denies loss of sense of taste or loss of sense of smell. Associated symptoms: Other - See HPI Exacerbated by: Other - See HPI Relieved by: Other - See HPI - Related Data Allergies/Adverse Reactions: aspirin Allergy (Intermediate, Verified 07/09/17 08:35) MAKES HEART FLUTTER Past Medical History - General Information source: Patient - Social History Smoking Status: Current Every Day Smoker Chew tobacco use (# tins/day): No Smoking Education Provided: Yes - This MD spent approximately 10 minutes on this with pt Frequency of alcohol use: None Drug Abuse: None Family History: Reviewed & Not Pertinent - Past Medical History Cardiac Medical History: Reports: Hx Hypercholesterolemia, Hx Hypertension Denies: Hx Heart Attack Pulmonary Medical History: Reports: Hx Asthma, Hx COPD - O2 dependent Neurological Medical History: Denies: Hx Cerebrovascular Accident, Hx Seizures Endocrine Medical History: Reports: Hx Diabetes Mellitus Type 2, Hx Hypothyroidism GI Medical History: Reports: Hx Gastroesophageal Reflux Disease. Denies: Hx Hepatitis, Hx Hiatal Hernia, Hx Ulcer Musculoskeletal Medical History: Reports Hx Arthritis - Osteoarthritis Psychiatric Medical History: Reports: Hx Depression Infectious Medical History: Denies: Hx Hepatitis Past Surgical History: Reports: Hx Cholecystectomy, Hx Gynecologic Surgery - Conization biopsy, Hx Thyroid Surgery - Thyroidectomy, Hx Tonsillectomy, Hx Tubal Ligation. Denies: Hx Hysterectomy, Hx Mastectomy, Hx Open Heart Surgery, Hx Pacemaker Review of Systems - Review of Systems Constitutional: No symptoms reported EENT: No symptoms reported Cardiovascular: No symptoms reported Respiratory: Short of breath Gastrointestinal: No symptoms reported Genitourinary: Frequency Female Genitourinary: No symptoms reported Musculoskeletal: No symptoms reported Skin: No symptoms reported Hematologic/Lymphatic: No symptoms reported Neurological/Psychological: No symptoms reported -: Yes All other systems reviewed and negative Physical Exam - Vital signs Vitals: Temp Pulse Resp BP Pulse Ox 98.0 F 93 22 H 142/65 H 92 07/08/20 17:53 07/08/20 17:53 07/08/20 17:53 07/08/20 17:53 07/08/20 17:53 - Notes Notes: CONSTITUTIONAL [Vital signs reviewed, Patient currently appears comfortable, Alert and oriented X 3, patient appears thin and frail] HEAD [Atraumatic, Normocephalic.] EYES [Eyes are normal to inspection, No discharge from eyes, Extraocular muscles intact, Sclera are normal, Conjunctiva are normal.]] NECK [Normal ROM, No jugular venous distention, No meningeal signs, no carotid bruit.] RESPIRATORY CHEST [Chest is nontender, Breath sounds normal, No respiratory distress. No wheezing] CARDIOVASCULAR [RRR, No murmurs, Normal S1 S2, No rub, No gallop.] ABDOMEN [Abdomen is nontender, No pulsatile masses, No other masses, Bowel sounds normal, No distension, No peritoneal signs, No hernias.] BACK [There is no CVA Tenderness, There is no tenderness to palpation, Normal inspection.] UPPER EXTREMITY [Inspection normal, No cyanosis, No clubbing, No edema, 2+ radial pulses.] LOWER EXTREMITY [Inspection normal, No cyanosis, No clubbing, No edema, No calf tenderness, 2+ femoral pulses.] NEURO [No focal motor deficits, No focal sensory deficits, Speech normal.] SKIN [Skin is warm, Skin is dry, Skin is normal color.] LYMPHATIC [No adenopathy in neck.] PSYCHIATRIC [Normal affect. ] Course - Re-evaluation Re-evalutation: 07/08/20 22:06 Results of ED MSE discussed with patient. All questions were answered prior to discharge. Patient was instructed that she could increase her oxygen concentrator level from 2-3 and if she feels like this would help. Patient states she has a follow-up appointment with her primary care provider tomorrow. Patient was encouraged to keep this appointment. - Vital Signs Vital signs: Temp Pulse Resp BP Pulse Ox 98.0 F 93 34 H 136/54 H 94 07/08/20 18:52 07/08/20 17:53 07/08/20 21:01 07/08/20 21:01 07/08/20 21:00 - Laboratory Result Diagrams: 07/08/20 19:00 07/08/20 19:00 Laboratory results interpreted by me: 07/08/20 07/08/20 07/08/20 19:00 19:00 21:21 RBC 5.41 H Hgb 16.9 H Hct 50.5 H Carbon Dioxide 35 H Glucose 137 H Calcium 6.3 L* Urine Protein 100 H Urine Urobilinogen 4.0 H Ur Leukocyte Esterase SMALL H - Diagnostic Test Radiology reviewed: Reports reviewed - EKG Interpretation by Me Additional EKG results interpreted by me: 07/08/20 22:07 EKG obtained on 07/08/2020 was interpreted by this MD. Findings normal sinus rhythm, rate 89, normal axis, DC interval appears to be within normal limits, P waves proceed QRS complexes, QRS complexes appear narrow, there are no obvious patterns of ST segment elevation or depression present to suggest acute myocardial ischemia or infarction. Impression normal sinus rhythm with nonspecific ST segments. Discharge - Discharge Clinical Impression: COPD exacerbation, Tobacco abuse, Tobacco abuse counseling UTI (urinary tract infection) Qualifiers: Urinary tract infection type: site unspecified Hematuria presence: without hematuria Qualified Code(s): N39.0 - Urinary tract infection, site not specified Condition: Stable Disposition: HOME, SELF-CARE Instructions: Nitrofurantoin ([facility]), Urinary Tract Infection ([facility]) Additional Instructions: You can turn your oxygen concentrator out from 2-3 if you feel this helps with your breathing. What would be more helpful in terms of your breathing is to quit smoking completely. As discussed nicotine gum is a alternative. You can find this at most drug stores. Is recommended that she purchase some of the 4 mg nicotine gum and use as directed. Return to the Emergency Department without delay if any worse. HOME CARE INSTRUCTIONS & INFORMATION: Thank you for choosing us for your medical needs. We hope you're satisfied with the care you received. After you leave, you must properly care for your problem and, at the same time, observe its progress. Any condition can change. Some illnesses can change rapidly over hours or days. If your condition worsens, return to the Emergency Department or see your physician promptly. ABOUT YOUR X-RAYS AND EKG'S: If you had an EKG or X-rays taken, they have been read by the Emergency Physician. The X-rays and EKG's will also be read by a Radiologist or Licensed Practical Nurse Clinic Nurse within 24 hours. If discrepancies are noted, you will be notified by telephone. Please be certain the ED has a correct telephone number & address where you can be reached. Also, realize that some fractures or abnormalities do not show up on initial X-rays. If your symptoms continue, see your physician. ABOUT YOUR LABORATORY TEST: If you had laboratory tests, the results have been reviewed by the Emergency Physician. Some test results (for example cultures) may not be available for several days. You will be contacted if any test result shows you need additional treatment. Please be certain the ED has a correct telephone number and address where you can be reached. ABOUT YOUR MEDICATIONS: You will receive instructions on how to take your medicine on the prescription label you receive. Additional information may be provided by the Pharmacy. If you have questions afterwards, call the ED for clarification or further instructions. Some prescribed medications may cause drowsiness. Do not perform tasks such as driving a car or operating machinery without consulting your Pharmacist. If you feel you need a refill of pain medi cation, your condition will need re-evaluation. Please do not call for a refill of any medication. ABOUT YOUR SIGNATURE: Signature of this document acknowledges to followin. Understanding that you received emergency treatment and that you may be released before al medical problems are known or treated. Please be certain the ED has a correct phone number & address where you can be reached. 2. Acknowledgement that you will arrange for follow-up care as recommended. 3. Authorization for the Emergency Physician to provide information to your follow-up Physician in order to maximize your care. AT ANY TIME, IF YOUR SYMPTOMS CHANGE SIGNIFICANTLY OR WORSEN OR YOU DEVELOP NEW SYMPTOMS, RETURN TO THE EMERGENCY DEPARTMENT IMMEDIATELY FOR RE-EVALUATION. OUR GOAL IS TO PROVIDE EXCELLENT MEDICAL CARE! WE HOPE THAT WE HAVE MET YOUR EXPECTATIONS DURING YOUR EMERGENCY DEPARTMENT VISIT AND THAT YOU FEEL YOU HAVE RECEIVED EXCELLENT CARE! Chronic Obstructive Lung Disease You have chronic obstructive lung disease (COPD). The symptoms come from emphysema (damage to small airways, with trapping of air in large sacks in the lung) and chronic bronchitis (repeated infection and damage to larger airways). The cause is almost always cigarette smoking, although dust exposure, asthma, and infections contribute. You should avoid fumes, dust, and smoke (especially tobacco smoke). Your condition will flare from time to time. There is no cure, but the symptoms can be treated. Bronchodilators (asthma medicine) are often helpful. Antibiotics help when infection is present. When shortness of breath is severe, we may prescribe cortisone medication. If medicine doesn't help enough, we can arrange for you to have an oxygen tank at home. Notify your doctor at once if sputum becomes thick, foul, or bloody, if you develop a fever or chest pain, or if your shortness of breath worsens. Urinary Tract Infection Your evaluation indicates that you have a urinary tract infection. This is due to germs growing in the bladder. This is a common problem. This infection usually responds quickly to antibiotics. Your antibiotic should be taken exactly as prescribed. Drink plenty of fluids -- three to four quarts a day. Occasionally, a bladder anesthetic will be prescribed to help stop the feeling of urgency until the antibiotic has a chance to clear the infection. This may cause your urine to be dark orange. Certain urine infections require a culture. If the doctor obtained a culture, the results will be back in two days. You should call to see if a change in treatment is needed. A repeat urinalysis after you finish treatment is often recommended. The physician will let you know if further testing is required. Call the doctor if you develop fever, chills, flank pain, inability to urinate, or blood in the urine. Stop Smoking You should stop smoking. The tar and chemicals in cigarette smoke are harmful. Smoking has been shown to cause: Emphysema and chronic bronchitis Lung cancer Cancer of the mouth, larynx, stomach, and pancreas Heart disease and stroke Stillbirths and miscarriage Premature aging In addition, smoking increases the chances of respiratory infections and ear infections in children of smokers, and increases the risk of cancer in persons exposed to second-hand smoke. Classes are available to help you stop smoking. If you are serious about wanting to quit, we can help arrange this therapy for you, or you can contact the local lung or cancer association. Prescriptions: Prednisone [Deltasone 10 mg Tablet] 10 mg PO ASDIR PRN #21 tablet PRN Reason: Nitrofurantoin Monohyd/M-Cryst [Macrobid 100 mg Capsule] 100 mg PO BID 7 Days #14 cap Referrals: АННА SOFIA MD [Primary Care Provider] - Follow up tomorrow
[2020-07-08 21:55] LABS: APPEARANCE,URINE SLIGHTLY-CLOUDY; BILIRUBIN,URINE NEGATIVE (NEGATIVE); COLOR,URINE YELLOW; GLUCOSE, URINE NEGATIVE (NEGATIVE); KETONES,URINE NEGATIVE (NEGATIVE); LEUKOCYTE ESTERASE,URINE SMALL (NEGATIVE); NITRITE,URINE NEGATIVE (NEGATIVE); PROTEIN,URINE 100 mg/dL (NEGATIVE); URINE SPECIFIC GRAVITY 1.023
[2020-07-08] MEDS ORDERED: CALCIUM GLUCONATE 1000 MG/10 ML INJ IV ONE (22:05)
[2020-07-08] MEDS ORDERED: NITROFURANTOIN MONOHYD/M-CRYST 100 MG CAPSULE PO ONE (22:06)
[2020-07-08 22:27] VITALS: BP 139/65
--- NOTE | 2020-07-09 02:15 | EKG REPORT ---
SEVERITY:- ABNORMAL ECG - SINUS RHYTHM MULTIPLE VENTRICULAR PREMATURE COMPLEXES NONSPECIFIC IVCD WITH LAD : Confirmed by: Irasema Kumar MD 09-Jul-2020 02:13:48
== END 2020-07-08 22:43 | disposition home or self-care (01) ==
LOC: ER 17:47
DX: J43.9 Emphysema, unspecified (principal); Z99.81 Dependence on supplemental oxygen; N39.0 Urinary tract infection, site not specified; R06.02 Shortness of breath; R05 Cough; F17.210 Nicotine dependence, cigarettes, uncomplicated; Z71.6 Tobacco abuse counseling; Z79.899 Other long term (current) drug therapy
CPT/HCPCS: 93005; 99285; 96361; 96374; 36415; 85025; 80053; 81001; 71045; 93010; J0610; A9270 ×2; J7040; J7512; J8499